=== PATIENT | female | born 1940 | race Caucasian/White ===

== ENCOUNTER 2018-11-07 10:29 | Emergency (ER) | payer OTHER ==
[~2018-11-07] VITALS: Ht 154.9 cm; Wt 59.0 kg
[2018-11-07 10:30] VITALS: BP_SYST 147
[2018-11-07 12:40] VITALS: BP_SYST 138
[2018-11-07] MEDS: ONDANSETRON 4 MG ODT TAB PO ONE ×2 (12:55→13:00)
== END 2018-11-07 12:40 | disposition home or self-care (01) ==
LOC: SED 10:29
DX: S09.90XA Unspecified injury of head, initial encounter (principal); E78.00 Pure hypercholesterolemia, unspecified; Z86.73 Personal history of transient ischemic attack (TIA), and cerebral infarction without residual deficits; Z90.49 Acquired absence of other specified parts of digestive tract; W01.0XXA Fall on same level from slipping, tripping and stumbling without subsequent striking against object, initial encounter; Y93.9 Activity, unspecified; Y92.89 Other specified places as the place of occurrence of the external cause; Y99.8 Other external cause status
CPT/HCPCS: 70450; 99284; Q0162